=== PATIENT | female | born 1970 | race Hispanic/Latino ===

== ENCOUNTER 2018-10-17 19:49 | Inpatient (IN) | payer SELFPAY ==
[2018-10-17] MEDS ORDERED: ASPIRIN PO ONE (20:04)
[2018-10-17] MEDS ORDERED: ZOFRAN IV ONE (20:38)
[2018-10-17] MEDS ORDERED: NITRO-BID 2% TP ONE (20:38)
[2018-10-17] MEDS ORDERED: SUBLIMAZE IV ONE (20:38)
--- NOTE | 2018-10-17 20:43 | Emergency Department Report ---
HPI - General Chief Complaint: Chest Pain Time Seen by Provider: 10/17/18 20:30 - HPI HPI: Room 2 The patient is a 48-year-old female presenting with a chief complaint of chest pain. Patient states her symptoms began last night with substernal chest pre ssure (patient described it as feeling as though her was sitting on her chest). Patient states the pain has been constant and associated with shortness of breath, nausea/vomiting and diaphoresis. The patient states this afternoon she developed pain in her left upper arm. The patient states her father from an MS at age 57. The patient currently gives her pain a score of 6/10. Patient states she's never had a stress test or cardiac catheterization Location: Chest, see above Duration: Onset yesterday Quality: Heaviness Severity:6/10 Modifying factors: [see above] Context: [see above] Mode of transportation: [not driving] ED Past Medical Hx - Past Medical History Previous Medical History?: Yes Hx Diabetes: Yes Additional medical history: Osteoporosis, hypercholesterolemia - Surgical History Past Surgical History?: Yes Additional Surgical History: Hysterectomy, Tubal Ligation - Family History Family history: CAD/MS (father from an MS at age 57) - Social History Smoking Status: Former Smoker (none x 22 years) Substance Use Type: None (denies illicit drug use) ED Review of Systems ROS: Stated complaint: CHEST PAIN,GILBERT, LT ARM PAIN Other details as noted in HPI Constitutional: diaphoresis Eyes: denies: eye pain ENT: denies: throat pain Respiratory: shortness of breath Cardiovascular: chest pain Endocrine: no symptoms reported Gastrointestinal: nausea, vomiting Genitourinary: denies: dysuria Musculoskeletal: denies: back pain Neurological: denies: headache Physical Exam - Physical Exam Vital Signs: Vital Signs 10/17/18 10/17/18 20:01 20:02 Temperature 97.9 F 97.9 F Pulse Rate 83 78 Respiratory 18 18 Rate Blood Pressure 141/80 141/80 O2 Sat by Pulse 99 100 Oximetry Physical Exam: GENERAL: The patient is well-developed well-nourished female lying on stretcher not appearing to be in acute distress. [] HEENT: Normocephalic. Atraumatic. Extraocular motions are intact. Patient has moist mucous membranes. NECK: Supple. Trachea midline CHEST/LUNGS: Clear to auscultation. There is no respiratory distress noted. HEART/CARDIOVASCULAR: Regular. There is no tachycardia. There is no gallop rub or murmur. 2+ radial pulses bilaterally ABDOMEN: Abdomen is soft, nontender. Patient has normal bowel sounds. There is no abdominal distention. SKIN: There is no rash. There is no edema. There is no diaphoresis. NEURO: The patient is awake, alert, and oriented. The patient is cooperative. The patient has normal speech MUSCULOSKELETAL: There is no evidence of acute injury. ED Course Vital Signs 10/17/18 10/17/18 20:01 20:02 Temperature 97.9 F 97.9 F Pulse Rate 83 78 Respiratory 18 18 Rate Blood Pressure 141/80 141/80 O2 Sat by Pulse 99 100 Oximetry ED Medical Decision Making - Lab Data Result diagrams: 10/17/18 20:07 10/17/18 20:07 Laboratory Tests 10/17/18 10/17/18 20:07 20:07 WBC 8.1 RBC 4.52 Hgb 13.1 Hct 38.7 MCV 86 MCH 29 MCHC 34 RDW 14.8 Plt Count 267 Lymph % (Auto) 36.5 H George % (Auto) 6.0 Eos % (Auto) 3.4 Baso % (Auto) 0.7 Lymph # 2.9 George # 0.5 Eos # 0.3 Baso # 0.1 Seg Neutrophils % 53.4 Seg Neutrophils # 4.3 Sodium 145 Potassium 3.5 L Chloride 107.5 H Carbon Dioxide 25 Anion Gap 16 BUN 8 Creatinine 0.9 Estimated GFR > 60 BUN/Creatinine Ratio 9 Glucose 173 H Calcium 9.2 Troponin T < 0.010 - EKG Data -: EKG Interpreted by Me EKG shows normal: sinus rhythm Rate: normal - EKG Data When compared to previous EKG there are: previous EKG unavailable Interpretation: nonspecific ST-T wave brandon (T-wave inversion in lead aVL) - Radiology Data Radiology results: report reviewed (chest x-ray), image reviewed (chest x-ray) interpreted by me: Chest x-ray-no focal infiltrates, no pneumothorax [facility] [address] [place] [address] XRay Report Signed Patient: SPENCER MARIN MR#: [id number] : 1970 Acct:[id number] Age/Sex: 48 / F ADM Date: 10/17/18 Loc: ED Attending Dr: Ordering Physician: FERNANDA GONZALEZ MD Date of Service: 10/17/18 Procedure(s): XR chest routine 2V Accession Number(s): [id number] cc: FERNANDA GONZALEZ MD Fluoro Time In Minutes: PROCEDURE: XR CHEST ROUTINE 2V TECHNIQUE: PA and lateral chest radiographs were obtained. HISTORY: Chest Pain COMPARISONS: None. FINDINGS: Heart: Normal. Mediastinum/Vessels: Normal. Lungs/Pleural space: Normal. Bony thorax: No acute osseous abnormality. IMPRESSION: Normal examination. This document is electronically signed by Oly Torres MD., Oct 17 2018 08:45:10 PM ET Transcribed By: [facility] Dictated By: OLY TORRES MD Electronically Authenticated By: OLY TORRES MD Signed Date/Time: 10/17/182046 DD/ 32 TD/TT: 10/17/182032 - Differential Diagnosis ACS, pericarditis, GERD, anxiety Critical care attestation.: If time is entered above; I have spent that time in minutes in the direct care of this critically ill patient, excluding procedure time. ED Disposition Clinical Impression: Chest pain Disposition: -09 OP ADMIT IP TO THIS HOSP Is pt being admited?: Yes Does the pt Need Aspirin: Yes Condition: Fair Instructions: Chest Pain (ED) Referrals: ELEN HANORWICH MD CODI [Primary Care Provider] - 3-5 Days Time of Disposition: 21:01 (hospitalist paged (Dr. Emelina Snowden)) AAYUSH score - Aayush Score Age > 65: (0) No Aspirin use within the Past 7 Days: (0) No 3 or more CAD Risk Factors: (1) Yes 2 or more Angina events in past 24 hrs: (1) Yes Known CAD with more than 50% Stenosis: (0) No Elevated Cardiac Markers: (0) No ST Deviation Greater than 0.5mm: (0) No AAYUSH Score: 2
[2018-10-17 20:46] LABS: BUN/Creatinine Ratio 9; Blood Urea Nitrogen 8 mg/dL (7-17); Calcium 9.2 mg/dL (8.4-10.2); Hemolysis Index 5
--- NOTE | 2018-10-17 20:47 | XRay Report ---
PROCEDURE: XR CHEST ROUTINE 2V TECHNIQUE: PA and lateral chest radiographs were obtained. HISTORY: Chest Pain COMPARISONS: None. FINDINGS: Heart: Normal. Mediastinum/Vessels: Normal. Lungs/Pleural space: Normal. Bony thorax: No acute osseous abnormality. IMPRESSION: Normal examination. This document is electronically signed by Oly Torres MD., Oct 17 2018 08:45:10 PM ET
[2018-10-17 20:52] LABS: Basophils # (Auto) 0.1 K/mm3 (0.0-0.1); Basophils % (Auto) 0.7 % (0.0-1.8); Eosinophils # (Auto) 0.3 K/mm3 (0.0-0.4); Eosinophils % (Auto) 3.4 % (0.0-4.3); Hematocrit 38.7 % (30.3-42.9); Hemoglobin 13.1 gm/dl (10.1-14.3); Lymphocytes # (Auto) 2.9 K/mm3 (1.2-5.4); Lymphocytes % (Auto) 36.5 % (13.4-35.0); Mean Corpuscular HGB Conc 34 % (30-34); Mean Corpuscular Volume 86 fl (79-97); Monocytes # (Auto) 0.5 K/mm3 (0.0-0.8); Platelet Count 267 K/mm3 (140-440); Red Blood Count 4.52 M/mm3 (3.65-5.03); Red Cell Distribution Width 14.8 % (13.2-15.2)
[2018-10-17 21:42] LABS: Bilirubin,Urine NEG (Negative); Blood,Urine NEG (Negative); Color,Urine Yellow (Yellow); Mucus,Urine FEW /HPF; Protein,Urine <15 mg/dL mg/dL (Negative); Urobilinogen,Urine < 2.0 mg/dL (<2.0)
[2018-10-17] MEDS ORDERED: SODIUM CHLORIDE FLUSH SYRINGE 10 ML IV PRN (21:44)
[2018-10-17] MEDS ORDERED: D50W (25GM) Syringe IV PRN (21:44)
[2018-10-17] MEDS ORDERED: MORPHINE IV PRN (21:44)
[2018-10-17] MEDS ORDERED: TYLENOL PO PRN (21:44)
--- NOTE | 2018-10-17 21:47 | History and Physical Report ---
History of Present Illness Date of examination: 10/17/18 History of present illness: 48-year-old woman with History of diabetes, hyperlipidemia, osteoporosis comes to the emergency room with complains of chest pain updated in the epigastric area. She describes it as a pressure-like sensation, like her sitting o n her chest, constant, intensity 6/10, radiating to the left arm, cannot identify exacerbating or relieving factors. Admit to nausea and vomiting, shortness breath, diaphoresis Review of systems Constitutional: no weight loss, chills, fever Ears, eyes, nose, mouth and throat: no nasal congestion, no nasal discharge, no sinus pressure, no vision change, no red eye. Neck: No neck pain or rigidity. Cardiovascular: no palpitation Respiratory: no cough Gastrointestinal: no hematochezia, abdominal pain Genitourinary : no frequency , no hematuria Musculoskeletal: no joint swelling or muscle ache Integumentary: no rash, no pruritis Neurological: no parathesias, no focal weakness Endocrine: no cold or heat intolerance, no polyuria or polydipsia Hematologic/Lymphatic: no easy bruising, no easy bleeding, no gland swelling Allergic/Immunologic: no urticaria, no angioedema. PAST MEDICAL HISTORY:diabetes, hyperlipidemia, osteoporosis PAST SURGICAL HISTORY: Tubal ligation, hysterectomy SOCIAL HISTORY: Denies alcohol, drugs, tobacco FAMILY HISTORY: Hypertension Medications and Allergies Allergies Allergy/AdvReac Type Severity Reaction Status Date / Time No Known Allergies Allergy Verified 10/17/18 20:34 Home Medications Medication Instructions Recorded Confirmed Last Taken Type Simvastatin 20 mg PO DAILY 10/17/18 10/17/18 10/17/18 History Sitagliptin Phos/Metformin HCl 1,000 mg PO QDAY 10/17/18 10/17/18 1 Day Ago History [Janumet XR 100-1,000 mg] ~10/16/18 Exam - Physical Exam Narrative exam: General Apperance: The patient lying in bed, breathing comfortable HEENT: Normocephalic, atraumatic. Pupils equally round and reactive to light, EOMI, no sclericterus or JVD or thyromegaly or nodule. , no carotid bruit, mucous membranes moist, no exudate or erythema Heart: S1-S2, regular is rhythm Lungs: Clear to auscultation bilaterally, breathing comfortable Abdomen: Positive bowel sounds, soft, nontender, nondistended, no organomegaly Extremities: No edema cyanosis clubbing Skin: no rash, nodule, warm and dry Neuro: cranial nerves 2-12 intact, speech is fluent, motor/sensory intact - Constitutional Vitals: Temp Pulse Resp BP Pulse Ox 97.9 F 78 18 141/80 100 10/17/18 20:02 10/17/18 20:02 10/17/18 20:02 10/17/18 20:02 10/17/18 20:02 Results - Labs CBC & Chem 7: 10/18/18 08:05 10/18/18 08:05 Labs: Abnormal lab results 10/17/18 10/17/18 Range/Units 20:07 20:07 Lymph % (Auto) 36.5 H (13.4-35.0) % Potassium 3.5 L (3.6-5.0) mmol/L Chloride 107.5 H (98-107) mmol/L Glucose 173 H (65-100) mg/dL - Imaging and Cardiology EKG: image reviewed Chest x-ray: report reviewed Assessment and Plan Assessment Chest pain, rule out ACS diabetes hyperlipidemia osteoporosis Plan Admit to medicine check cardiac enzymes, no stress test available until Friday Consult cardiology, check fingersticks, initiate insulin sliding scale Continue appropriate outpatient medication, start IV morphine, aspirin DVT prophalaxis
[2018-10-17] MEDS: HumaLOG SUB-Q SCH (22:11)
[2018-10-17] MEDS: ZOFRAN IV PRN (22:11)
[2018-10-17] MEDS: SODIUM CHLORIDE FLUSH SYRINGE 10 ML IV SCH (22:12)
[2018-10-17 23:26] LABS: Creatine Kinase MB 3.1 ng/mL (0.0-4.0)
[2018-10-18 08:27] LABS: Basophils # (Auto) 0.1 K/mm3 (0.0-0.1); Eosinophils # (Auto) 0.3 K/mm3 (0.0-0.4); Hematocrit 39.3 % (30.3-42.9); Hemoglobin 13.6 gm/dl (10.1-14.3); Lymphocytes # (Auto) 1.9 K/mm3 (1.2-5.4); Lymphocytes % (Auto) 26.8 % (13.4-35.0); Mean Corpuscular HGB Conc 35 % (30-34); Mean Corpuscular Volume 85 fl (79-97); Monocytes # (Auto) 0.5 K/mm3 (0.0-0.8); Monocytes % (Auto) 6.5 % (0.0-7.3); Platelet Count 250 K/mm3 (140-440); Red Blood Count 4.64 M/mm3 (3.65-5.03); Red Cell Distribution Width 14.9 % (13.2-15.2)
[2018-10-18 08:43] LABS: Creatine Kinase MB 2.3 ng/mL (0.0-4.0)
[2018-10-18 08:44] LABS: BUN/Creatinine Ratio 9; Blood Urea Nitrogen 8 mg/dL (7-17); Calcium 8.8 mg/dL (8.4-10.2); Hemolysis Index 5
[2018-10-18] MEDS ORDERED: LOVENOX SUB-Q SCH (10:00)
[2018-10-18] MEDS ORDERED: NON-FORMULARY (Simvastatin [Simvastatin] 20 MG) PO SCH (10:00)
[2018-10-18] MEDS ORDERED: ULTRAM PO PRN (10:48)
--- NOTE | 2018-10-18 10:52 | Consultation ---
History of Present Illness Consult date: 10/18/18 Requesting physician: NATALIA THOMAS Consult reason: chest pain History of present illness: 48-year-old female with mild obesity diabetes hyperlipidemia family history of premature CAD presented 2 days of chest pressure sometimes worse with deep breathing denies any fevers chills nausea vomiting. Today patient still having on and off. Patient was told to see a psych nurse did not have insurance is concern. Patient denies any exertional type symptoms on radiation this left- sided chest Past History Past Medical History: diabetes, hyperlipidemia Past Surgical History: No surgical history Social history: no significant social history Family history: CAD Medications and Allergies Allergies Allergy/AdvReac Type Severity Reaction Status Date / Time No Known Allergies Allergy Verified 10/17/18 20:34 Home Medications Medication Instructions Recorded Confirmed Last Taken Type Simvastatin 20 mg PO DAILY 10/17/18 10/17/18 10/17/18 History Sitagliptin Phos/Metformin HCl 1,000 mg PO QDAY 10/17/18 10/17/18 1 Day Ago History [Janumet XR 100-1,000 mg] ~10/16/18 Active Meds: Active Medications Acetaminophen (Tylenol) 650 mg PO Q4H PRN PRN Reason: Pain MILD(1-3)/Fever >100.5/[place] Aspirin (Aspirin) 325 mg PO QDAY [facility] Dextrose (D50w (25gm) Syringe) 50 ml IV PRN PRN PRN Reason: Hypoglycemia Enoxaparin Sodium (Lovenox) 40 mg SUB-Q QDAY@1000 SHAHIDA Ceftriaxone Sodium (Rocephin/Ns 1 Gm/50 Ml) 1 gm in 50 mls @ 100 mls/hr IV Q24HR [facility]; Protocol Insulin Human Lispro (Humalog) 0 unit SUB-Q ACHS [facility]; Protocol Last Admin: 10/17/18 22:11 Dose: Not Given Documented by: Morphine Sulfate (Morphine) 2 mg IV Q4H PRN PRN Reason: Pain, Moderate (4-6) Ondansetron HCl (Zofran) 4 mg IV Q8H PRN PRN Reason: Nausea And Vomiting Last Admin: 10/17/18 22:11 Dose: 4 mg Documented by: Pantoprazole Sodium (Protonix) 40 mg PO QDAY [facility] Pneumococcal Polyvalent Vaccine (Pneumovax 23) 0.5 ml IM .ONCE ONE Stop: 10/18/18 12:01 Pravastatin Sodium (Pravachol) 40 mg PO QHS [facility] Sodium Chloride (Sodium Chloride Flush Syringe 10 Ml) 10 ml IV BID [facility] Last Admin: 10/17/18 22:12 Dose: 10 ml Documented by: Sodium Chloride (Sodium Chloride Flush Syringe 10 Ml) 10 ml IV PRN PRN PRN Reason: LINE FLUSH Review of Systems All systems: negative (as per hpi) Physical Examination Vital Signs Temp Pulse Resp BP Pulse Ox 97.9 F 83 18 141/80 99 10/17/18 20:01 10/17/18 20:01 10/17/18 20:01 10/17/18 20:01 10/17/18 20:01 General appearance: no acute distress, well-nourished HEENT: Positive: PERRL, Mucus Membranes Moist Neck: Positive: neck supple, trachea midline Cardiac: Positive: Reg Rate and Rhythm, S1/S2. Negative: Audible Murmur Lungs: Positive: clear to auscultation, Normal Breath Sounds Neuro: Positive: Grossly Intact Abdomen: Positive: Soft, Active Bowel Sounds. Negative: Tender, Distended Female genitourinary: deferred Skin: Positive: Clear Incision: Cardiac Cath Site Musculoskeletal: No Pain, Normal Range of Motion Extremities: Present: normal. Absent: edema Results 10/18/18 08:05 10/18/18 08:05 Cardiac Enzymes 10/17/18 10/18/18 Range/Units 22:48 08:05 CK-MB (CK-2) 3.1 2.3 (0.0-4.0) ng/mL CBC 10/17/18 10/18/18 Range/Units 20:07 08:05 WBC 8.1 7.0 (4.5-11.0) K/mm3 RBC 4.52 4.64 (3.65-5.03) M/mm3 Hgb 13.1 13.6 (10.1-14.3) gm/dl Hct 38.7 39.3 (30.3-42.9) % Plt Count 267 250 (140-440) K/mm3 Lymph # 2.9 1.9 (1.2-5.4) K/mm3 [place] # 0.5 0.5 (0.0-0.8) K/mm3 Eos # 0.3 0.3 (0.0-0.4) K/mm3 Baso # 0.1 0.1 (0.0-0.1) K/mm3 Comprehensive Metabolic Panel 10/17/18 10/18/18 Range/Units 20:07 08:05 Sodium 145 144 (137-145) mmol/L Potassium 3.5 L 4.4 D (3.6-5.0) mmol/L Chloride 107.5 H 109.0 H (98-107) mmol/L Carbon Dioxide 25 27 (22-30) mmol/L BUN 8 8 (7-17) mg/dL Creatinine 0.9 0.9 (0.7-1.2) mg/dL Glucose 173 H 129 H (65-100) mg/dL Calcium 9.2 8.8 (8.4-10.2) mg/dL EKG interpretations - Telemetry EKG Rhythm: Sinus Rhythm (nonspecific ST-T) Assessment and Plan Chest possible GI hyperLipidemia Diabetes Recommend anti-inflammatories and a PPI for chest pressure given risk factors with treadmill nuclear stress test in a.m.
[2018-10-18] MEDS: ASPIRIN PO SCH (10:59)
[2018-10-18] MEDS: LOVENOX SUB-Q SCH (10:59)
[2018-10-18] MEDS: SODIUM CHLORIDE FLUSH SYRINGE 10 ML IV SCH ×2 (11:00→22:13)
[2018-10-18] MEDS: ROCEPHIN/NS 1 GM/50 ML 1 GM/50 ML BAG IV SCH (11:00)
[2018-10-18] MEDS: HumaLOG SUB-Q SCH ×4 (11:04→22:17)
[2018-10-18] MEDS: PROTONIX PO SCH (11:05)
--- NOTE | 2018-10-18 11:36 | Progress Note ---
Assessment and Plan Assessment and plan: 48 year old woman history of hyperlipidemia, diabetes osteoporosis presented with chest pain/epigastric pain CXR; wnl EKG; no acute s-t changes Chest pain ACS ruled out, trop neg x4, stress test not available till Friday, cardiology consult appreciated metformin on hold pending stress test UTI; rocephin x 3 days DM SSI, oral meds on hold htn, hld, osteoporosis cont home meds dvt ppx- lovenox History Interval history: Review of systems Constitutional: No fevers, no malaise, no joint pains CVS: No chest pain, no orthopnea, no pedal edema GI: No abdominal pain, no diarrhea, no vomiting, no constipation Respiratory: No shortness of breath, no wheezing, no coughing Hospitalist Physical - Physical exam Narrative exam: General.: Appears well, no distress, nontoxic HEENT: Moist mucous membranes, extraocular muscles intact, no lymphadenopathy Neck: supple Cardiac: S1-S2 heard Lungs: clear to auscultation bilaterally Abdomen: soft , nontender, nondistended, bowel sounds positive Extremities: no edema clubbing or cyanosis Skin: no rash or lesions Neurologic: no gross focal deficits Psych: calm, and cooperative - Constitutional Vitals: Temp Pulse Resp BP Pulse Ox 98.0 F 60 20 124/70 98 10/18/18 11:16 10/18/18 11:16 10/18/18 11:16 10/18/18 11:16 10/18/18 11:16 General appearance: Present: no acute distress, well-nourished Results - Labs CBC & Chem 7: 10/18/18 08:05 10/18/18 08:05 Labs: Laboratory Last Values WBC 7.0 K/mm3 (4.5-11.0) 10/18/18 08:05 RBC 4.64 M/mm3 (3.65-5.03) 10/18/18 08:05 Hgb 13.6 gm/dl (10.1-14.3) 10/18/18 08:05 Hct 39.3 % (30.3-42.9) 10/18/18 08:05 MCV 85 fl (79-97) 10/18/18 08:05 MCH 29 pg (28-32) 10/18/18 08:05 MCHC 35 % (30-34) H 10/18/18 08:05 RDW 14.9 % (13.2-15.2) 10/18/18 08:05 Plt Count 250 K/mm3 (140-440) 10/18/18 08:05 Lymph % (Auto) 26.8 % (13.4-35.0) 10/18/18 08:05 [place] % (Auto) 6.5 % (0.0-7.3) 10/18/18 08:05 Eos % (Auto) 4.0 % (0.0-4.3) 10/18/18 08:05 Baso % (Auto) 1.0 % (0.0-1.8) 10/18/18 08:05 Lymph # 1.9 K/mm3 (1.2-5.4) 10/18/18 08:05 [place] # 0.5 K/mm3 (0.0-0.8) 10/18/18 08:05 Eos # 0.3 K/mm3 (0.0-0.4) 10/18/18 08:05 Baso # 0.1 K/mm3 (0.0-0.1) 10/18/18 08:05 Seg Neutrophils % 61.7 % (40.0-70.0) 10/18/18 08:05 Seg Neutrophils # 4.3 K/mm3 (1.8-7.7) 10/18/18 08:05 Sodium 144 mmol/L (137-145) 10/18/18 08:05 Potassium 4.4 mmol/L (3.6-5.0) D 10/18/18 08:05 Chloride 109.0 mmol/L (98-107) H 10/18/18 08:05 Carbon Dioxide 27 mmol/L (22-30) 10/18/18 08:05 12 mmol/L 10/18/18 08:05 BUN 8 mg/dL (7-17) 10/18/18 08:05 0.9 mg/dL (0.7-1.2) 10/18/18 08:05 Estimated GFR > 60 ml/min 10/18/18 08:05 9 % 10/18/18 08:05 Glucose 129 mg/dL (65-100) H 10/18/18 08:05 POC Glucose 83 (70-105) 10/17/18 22:16 Calcium 8.8 mg/dL (8.4-10.2) 10/18/18 08:05 114 units/L (30-135) 10/18/18 08:05 CK-MB (CK-2) 2.3 ng/mL (0.0-4.0) 10/18/18 08:05 CK-MB (CK-2) Rel Index 2.0 (0-4) 10/18/18 08:05 < 0.010 ng/mL (0.00-0.029) 10/18/18 08:05 Yellow (Yellow) 10/17/18 20:58 Slightly-cloudy (Clear) 10/17/18 20:58 5.0 (5.0-7.0) 10/17/18 20:58 Ur Specific [place] 1.016 (1.003-1.030) 10/17/18 20:58 <15 mg/dl mg/dL (Negative) 10/17/18 20:58 Neg mg/dL (Negative) 10/17/18 20:58 Neg mg/dL (Negative) 10/17/18 20:58 Neg (Negative) 10/17/18 20:58 Neg (Negative) 10/17/18 20:58 Neg (Negative) 10/17/18 20:58 < 2.0 mg/dL (<2.0) 10/17/18 20:58 Ur Leukocyte Esterase Sm (Negative) 10/17/18 20:58 19.0 /HPF (0.0-6.0) H 10/17/18 20:58 6.0 /HPF (0.0-6.0) 10/17/18 20:58 U Epithel Cells (Auto) 1.0 /HPF (0-13.0) 10/17/18 20:58 Ur Transition Epith Cell 1 /HPF 10/17/18 20:58 Few /HPF 10/17/18 20:58 Active Medications - Current Medications Current Medications: Generic Name Dose Route Start Last Admin Trade Name Freq PRN Reason Stop Dose Admin Acetaminophen 650 mg 10/17/18 21:44 Tylenol PO Q4H PRN Pain MILD(1-3)/Fever >100.5/[place] Aspirin 325 mg 10/18/18 10:00 10/18/18 10:59 Aspirin PO 325 mg QDAY SHAHIDA Administration Dextrose 50 ml 10/17/18 21:44 D50w (25gm) Syringe IV PRN PRN Hypoglycemia Enoxaparin Sodium 40 mg 10/18/18 10:00 10/18/18 10:59 Lovenox SUB-Q 40 mg QDAY@1000 SHAHIDA Administration Ceftriaxone Sodium 1 gm in 50 mls @ 100 mls/hr 10/18/18 10:00 10/18/18 11:00 Rocephin/Ns 1 Gm/50 Ml IV 100 mls/hr Q24HR SHAHIDA Administration Protocol Insulin Human Lispro 0 unit 10/17/18 22:00 10/18/18 11:04 Humalog SUB-Q Not Given ACHS [facility] Protocol Morphine Sulfate 2 mg 10/17/18 21:44 Morphine IV Q4H PRN Pain, Moderate (4-6) Ondansetron HCl 4 mg 10/17/18 21:44 10/17/18 22:11 Zofran IV 4 mg Q8H PRN Administration Nausea And Vomiting Pantoprazole Sodium 40 mg 10/18/18 11:00 10/18/18 11:05 Protonix PO 40 mg QDAY SHAHIDA Administration Pneumococcal Polyvalent Vaccine 0.5 ml 10/18/18 12:00 Pneumovax 23 IM 10/18/18 12:01 .ONCE ONE Pravastatin Sodium 40 mg 10/18/18 22:00 Pravachol PO QHS SHAHIDA Sodium Chloride 10 ml 10/17/18 22:00 10/18/18 11:00 Sodium Chloride Flush Syringe 10 Ml IV 10 ml BID SHAHIDA Administration Sodium Chloride 10 ml 10/17/18 21:44 Sodium Chloride Flush Syringe 10 Ml IV PRN PRN LINE FLUSH Tramadol HCl 50 mg 10/18/18 10:48 Ultram PO Q4H PRN Pain, Moderate (4-6)
[2018-10-18] MEDS ORDERED: PNEUMOVAX 23 IM ONE (12:00)
[2018-10-18] MEDS: ZOFRAN IV PRN (19:51)
[2018-10-18] MEDS ORDERED: PRAVACHOL PO SCH (22:00)
[2018-10-19] MEDS: HumaLOG SUB-Q SCH ×2 (07:30→11:30)
[2018-10-19] MEDS: ROCEPHIN/NS 1 GM/50 ML 1 GM/50 ML BAG IV SCH (10:00)
[2018-10-19] MEDS: SODIUM CHLORIDE FLUSH SYRINGE 10 ML IV SCH (10:00)
[2018-10-19] MEDS: PROTONIX PO SCH (10:00)
[2018-10-19] MEDS: LOVENOX SUB-Q SCH (10:00)
[2018-10-19] MEDS: ASPIRIN PO SCH (10:00)
[2018-10-19 10:35] VITALS: BP 157/79
--- NOTE | 2018-10-19 10:47 | Progress Note ---
Assessment and Plan Chest possible GI hyperLipidemia Diabetes Recommend s tress test normal , non cardiac chest pain possible gi, cont current meds and followup in office [id number] Subjective Date of service: 10/19/18 Principal diagnosis: chest pain Interval history: pain has improved Objective Vital Signs Temp Pulse Resp BP Pulse Ox 10/19/18 10:02 157/79 10/19/18 09:28 144/85 10/19/18 07:57 95 10/19/18 04:44 98.4 F 69 18 117/69 95 10/19/18 00:11 62 20 121/68 94 10/18/18 17:56 97.7 F 69 18 117/48 97 10/18/18 16:34 97.9 F 67 18 131/75 96 10/18/18 11:16 98.0 F 60 20 124/70 98 - Physical Examination HEENT: Positive: PERRL, Mucus Membranes Moist Neck: Positive: neck supple, trachea midline Cardiac: Positive: Reg Rate and Rhythm Lungs: Positive: clear to auscultation Neuro: Positive: Grossly Intact Abdomen: Positive: Soft, Active Bowel Sounds. Negative: Tender, Distended Skin: Positive: Clear Incision: Cardiac Cath Site Musculoskeletal: No Pain, Normal Range of Motion Extremities: Present: normal. Absent: edema - Imaging and Cardiology EKG: image reviewed Exercise stress test: report reviewed (negative treadmill ekg 9 minutes jaxson protocol and normal myocardial perfusion no ischemia and normal lv function)
--- NOTE | 2018-10-19 11:25 | Discharge Summary ---
Providers - Providers Date of Admission: 10/18/18 11:55 Attending physician: NATALIA THOMAS MD 10/17/18 21:44 Consult to Physician [CONS] Routine Comment: Consulting Provider: HENNA MIJARES Physician Instructions: Reason For Exam: cp [facility] Condition: Stable Hospital course: 48-year-old woman with history of hyperlipidemia, diabetes osteoporosis who presented to the hospital with chest pain. ACS was ruled out, stress test was performed and was negative. She was found to have a UTI for which she received antibiotics. The patient improved and was subsequently discharged Diagnosis Chest pain due to costochondritis Type 2 diabetes UTI Hypertension Hyperlipidemia Osteoporosis Disposition: TO HOME OR SELFCARE Time spent for discharge: 35 minutes Core Measure Documentation - Palliative Care Palliative Care/ Comfort Measures: Not Applicable - Core Measures Any of the following diagnoses?: none Exam - Constitutional Vitals: Temp Pulse Resp BP Pulse Ox 98.4 F 69 18 157/79 95 10/19/18 04:44 10/19/18 04:44 10/19/18 04:44 10/19/18 10:02 10/19/18 07:57 General appearance: Present: no acute distress, well-nourished - EENT Eyes: Present: PERRL ENT: hearing intact, clear oral mucosa - Neck Neck: Present: supple, normal ROM - Respiratory Respiratory effort: normal Respiratory: bilateral: CTA - Cardiovascular Heart Sounds: Present: S1 & S2. Absent: rub, click - Extremities Extremities: pulses symmetrical, No edema Peripheral Pulses: within normal limits - Abdominal General gastrointestinal: Present: soft, non-tender, non-distended, normal bowel sounds Female genitourinary: Present: normal - Integumentary Integumentary: Present: clear, warm, dry - Musculoskeletal Musculoskeletal: gait normal, strength equal bilaterally - Psychiatric Psychiatric: appropriate mood/affect, intact judgment & insight - Neurologic Neurologic: CNII-XII intact, moves all extremities Plan Follow up with: DAMIÁN VARGAS MD [Primary Care Provider] - 3-5 Days
--- NOTE | 2018-10-20 00:06 | Treadmill Report ---
NUCLEAR PERFUSION STUDY REASON FOR STUDY: Chest pain and shortness of breath. READING PHYSICIAN: Miguel Ghosh MD IMAGING PROTOCOL: The patient received 10 mCi of Technetium 99m Tetrofosmin for resting image and 28 mCi of Technetium 99m Tetrofosmin for stress imaging. The imaging for the whole procedure was completed 30-90 minutes following the initial injection of Technetium 99m Tetrofosmin. The SPECT imaging in the 180 degree arc was performed in the right anterior oblique projection. Computerized reconstruction of the images was performed for analysis. IMAGING RESULTS: Normal cavity size from stress to rest. Normal distribution of radionuclide in the anterior, inferior, septal, and apical regions. Gated SPECT, EF greater than 65% with no wall motion abnormality. The patient exercised Kike protocol for 9 minutes. No exaggerated BP. No EKG changes. Stopped secondary to shortness of breath. SUMMARY: 1. Negative treadmill EKG. 2. Good exercise capacity 9 minutes Kike protocol. 3. No exaggerated BP response to exercise. 4. Normal rest and stress myocardial perfusion scan. No significant ischemia. No wall motion abnormality. Gated SPECT, EF greater than 65%. JOB# [id number] JACOB/ROGER
== END 2018-10-19 13:30 | disposition home or self-care (01) | DRG 313 ==
LOC: ED 19:49 → 4A 21:44 → OBSVTOIN 10-18 11:55 → 3A 10-18 17:43
PROVIDERS: ADMIT Internal Medicine; ATTEND Internal Medicine
PROC: 3E0234Z Introduction of Serum, Toxoid and Vaccine into Muscle, Percutaneous Approach (ICD-10-PCS; principal; 2018-10-18)
DX: R07.9 Chest pain, unspecified (principal); N39.0 Urinary tract infection, site not specified; M81.0 Age-related osteoporosis without current pathological fracture; E66.9 Obesity, unspecified; E78.5 Hyperlipidemia, unspecified; E11.9 Type 2 diabetes mellitus without complications; E78.00 Pure hypercholesterolemia, unspecified; Z98.51 Tubal ligation status; Z90.710 Acquired absence of both cervix and uterus; Z82.49 Family history of ischemic heart disease and other diseases of the circulatory system; Z23 Encounter for immunization; Z87.891 Personal history of nicotine dependence; Z68.29 Body mass index [BMI] 29.0-29.9, adult; Z79.84 Long term (current) use of oral hypoglycemic drugs
CPT/HCPCS: 36415; 71046; 78452; 80048; 81001; 82550; 82553; 82962; 84484; 85025; 90732; 93005; 93010; 93017; 96374; 96375; 99285; G0378; A9270-GY; A9502; J0696; J1650; J2405; J3010